=== PATIENT | female | born 1985 | race Caucasian/White ===

== ENCOUNTER 2016-06-25 07:09 | Emergency (ER) | payer OTHER ==
--- NOTE | 2016-06-25 07:15 | EDPHY ---
H & P Stated Complaint: DX W/ PNA FEELS SOB TODAY Time Seen by Provider: 06/25/16 07:14 HPI/ROS: CHIEF COMPLAINT: Worsening dyspnea HISTORY OF PRESENT ILLNESS: The patient presents to the ED with worsening dyspnea. The patient was diagnosed with pneumonia yesterday. She reportedly had an x-ray done at urgent care. She was started on antibiotics. She has been using an inhaler at home without improvement of her symptoms. She presents to the ED today complaining centralized chest pain which is pleuritic in nature as well as ongoing dyspnea. Patient has had some symptoms consistent with a URI over the past week with congestion, harsh cough and myalgias. The patient denies asymmetric calf pain or swelling. The patient does not smoke. She has no history of PE or DVT. The patient does use Depo-Provera for control. REVIEW OF SYSTEMS: A comprehensive 10 point review of systems is otherwise negative aside from elements mentioned in the history of present illness. Source: Patient Exam Limitations: No limitations - Personal History LMP (Females 10-55): IUD In Place Current Tetanus/Diphtheria Vaccine: Yes Current Tetanus Diphtheria and Acellular Pertussis (TDAP): Yes Tetanus Vaccine Date: 2007 - Medical/Surgical History Hx Asthma: No Hx Chronic Respiratory Disease: No Hx Diabetes: No Hx Cardiac Disease: No Hx Renal Disease: No Hx Cirrhosis: No Hx Alcoholism: No Hx HIV/AIDS: No Hx Splenectomy or Spleen Trauma: No Other PMH: PMH- epilepsy. PSH- ANGELA - Social History Smoking Status: Never smoked Alcohol Use: None Drug Use: None - Physical Exam Exam: General Appearance: Alert, no distress Eyes: Pupils equal and round no pallor or injection ENT, Mouth: Mucous membranes moist Respiratory: There are no retractions, lungs are clear to auscultation Cardiovascular: Tachycardic Gastrointestinal: Abdomen is soft and nontender, no masses, bowel sounds normal Neurological: A&O, normal motor function, normal sensory exam, normal cranial nerves Skin: Warm and dry, no rashes Musculoskeletal: Neck is supple nontender Extremities: symmetrical, full range of motion Constitutional: Initial Vital Signs Temperature (C) 37.6 C 06/25/16 07:10 Heart Rate 119 H 06/25/16 07:10 Respiratory Rate 20 06/25/16 07:10 Blood Pressure 146/119 H 06/25/16 07:10 O2 Sat (%) 96 01/24/17 07:10 Allergies/Adverse Reactions: amoxicillin [Amoxicillin] Allergy (Verified 04/08/14 17:30) Home Medications: Medication Instructions Recorded ALBUTEROL SULFATE 06/25/16 Albuterol [Ventolin Hfa Inhaler] 2 puffs IH QID PRN #1 mdi 06/25/16 Hydrocodone/APAP 5/325 [Ethridge 1 - 2 each PO Q6 PRN #20 tab 06/25/16 5/325] Mucinex Dm ER 1,200-60 mg Tab 06/25/16 Oseltamivir Phosphate [Tamiflu] 75 mg PO BID #10 cap 06/25/16 Z-PACK 06/25/16 Medical Decision Making - Diagnostics Imaging: EKG: Complete interpretation has been separately recorded in the [facility] archive. Summary impression: Sinus rhythm, rate 96 ED Course/Re-evaluation: The patient presents to the ED with upper respiratory symptoms and worsening dyspnea. The patient does have a slightly elevated D-dimer. Her influenza PCR is positive. I favor a diagnosis of acute influenza over pulmonary embolism at this point time. The patient will be started on Tamiflu. She is not hypoxic. She had slight tachycardia which improved with IV fluids. The patient was re-evaluated at 9:30 a.m.. She is comfortable being discharged home. She is given a prescription for Ethridge. She is advised to continue ibuprofen. She should return to the ED for markedly worsening symptoms or other concerns. Differential Diagnosis: Differential diagnosis considered includes asthma, bronchitis, pneumonia, influenza - Data Points Laboratory Results: Laboratory Results 06/25/16 08:35 06/25/16 08:35 06/25/16 06/25/16 08:35 07:30 WBC 6.68 10^3/uL (3.80-9.50) RBC 4.54 10^6/uL (4.18-5.33) Hgb 13.8 g/dL (12.6-16.3) Hct 39.4 % (38.0-47.0) MCV 86.8 fL (81.5-99.8) MCH 30.4 pg (27.9-34.1) MCHC 35.0 g/dL (32.4-36.7) RDW 12.5 % (11.5-15.2) Plt Count 263 10^3/uL (150-400) MPV 9.3 fL (8.7-11.7) Neut % (Auto) 80.5 H % (39.3-74.2) Lymph % (Auto) 10.9 L % (15.0-45.0) [place] % (Auto) 7.9 % (4.5-13.0) Eos % (Auto) 0.0 L % (0.6-7.6) Baso % (Auto) 0.4 % (0.3-1.7) Nucleat RBC Rel Count 0.0 % (0.0-0.2) Absolute Neuts (auto) 5.37 10^3/uL (1.70-6.50) Absolute Lymphs (auto) 0.73 L 10^3/uL (1.00-3.00) Absolute Monos (auto) 0.53 10^3/uL (0.30-0.80) Absolute Eos (auto) 0.00 L 10^3/uL (0.03-0.40) Absolute Basos (auto) 0.03 10^3/uL (0.02-0.10) Absolute Nucleated RBC 0.00 10^3/uL (0-0.01) Immature Gran % 0.3 % (0.0-1.1) Immature Gran # 0.02 10^3/uL (0.00-0.10) D-Dimer 0.90 H ug/mLFEU (0.00-0.50) Sodium 143 mEq/L (134-144) Potassium 3.7 mEq/L (3.5-5.2) Chloride 112 H mEq/L (97-110) Carbon Dioxide 19 L mEq/l (22-31) Anion Gap 12 mEq/L (8-16) BUN 8 mg/dL (7-23) Creatinine 0.5 L mg/dL (0.6-1.0) Estimated GFR > 60 Glucose 94 mg/dL (70-100) Calcium 8.7 mg/dL (8.5-10.4) Beta HCG, Qual NEGATIVE Influenza A & B (PCR) POSITIVE FOR FLU A H (NEGATIVE) Medications Given: Discontinued Medications Albuterol (Proventil Neb) 3 ml IH EDNOW ONE Stop: 06/25/16 08:48 Last Admin: 06/25/16 09:08 Dose: 3 ml Albuterol/Ipratropium (Duoneb) 3 ml IH EDNOW ONE Stop: 06/25/16 07:26 Last Admin: 06/25/16 08:15 Dose: Not Given Sodium Chloride (Ns) 1,000 mls @ 0 mls/hr IV ONCE ONE PRN Reason: Wide Open Stop: 06/25/16 07:26 Last Admin: 06/25/16 07:45 Dose: 1,000 mls Departure - Departure Disposition: Home, Routine, Self-Care Clinical Impression: Influenzal bronchitis Condition: Good Instructions: Influenza (ED) Additional Instructions: 1. Take Ibuprofen or Motrin 600 mg by mouth three times a day. 2. Take Tamiflu as needed for influenza. 3. Ethridge as needed for pain Referrals: Alberto Yates MD [Primary Care Provider] - As per Instructions Prescriptions: Hydrocodone/APAP 5/325 [Ethridge 5/325] 1 - 2 each PO Q6 PRN #20 tab PRN Reason: for pain Oseltamivir Phosphate [Tamiflu] 75 mg PO BID #10 cap Albuterol [Ventolin Hfa Inhaler] 2 puffs IH QID PRN #1 mdi PRN Reason: for shortness of breath
[2016-06-25] MEDS ORDERED: IPRATROPIUM/ALBUTEROL 3 ML DEYVIAL IH ONE (07:25)
[2016-06-25] MEDS ORDERED: NS 1,000 ML IV ONE (07:25)
--- NOTE | 2016-06-25 08:41 | DX ---
Chest, PA and Lateral History: Dyspnea, diagnosed with pneumonia yesterday COMPARISON: None Findings: Lungs are clear, without infiltrate or consolidation. Heart size is normal. There is mild e levation of the right hemidiaphragm. There is no adenopathy or mass lesion. There is no pleural effus ion or pneumothorax. Bones are unremarkable for age. There are prominent gas-filled loops of bowel in the upper abdomen. Right upper quadrant surgical clips are consistent with previous cholecystectomy. No free air is seen beneath either hemidiaphragm. There are minor T6 and T7 compressions, likely old . Impression: 1. Normal chest without radiographic evidence for pneumonia 2. Prominent gas-filled loops of bowel in the upper abdomen. If there is concern for an abdominal pat hology, then consider 2 views of the abdomen. Results called to Dr. Marcus at 8:36 AM.
--- NOTE | 2016-06-25 08:46 | CPEKG ---
Heart Rate: 96 RR Interval: 625 P-R Interval: 164 QRSD Interval: 88 QT Interval: 344 QTC Interval: 435 P [place]: 48 QRS [place]: -12 T Wave [place]: -19 EKG Severity - BORDERLINE ECG - EKG Impression: SINUS RHYTHM Electronically Signed By: Mathew Marcus 25-Jun-2016 09:11:15
[2016-06-25 08:47] LABS: % IMMATURE GRANULYOCYTES 0.3 % (0.0-1.1); ABSOLUTE IMMATURE GRANULOCYTES 0.02 10^3/uL (0.00-0.10); ADD DIFF? NO; ADD MORPH? NO; ADD SCAN? NO; ATYPICAL LYMPHOCYTE FLAG 10 (0-99); FRAGMENT RBC FLAG 0 (0-99); HEMATOCRIT 39.4 % (38.0-47.0); HEMOGLOBIN 13.8 g/dL (12.6-16.3); LEFT SHIFT FLG 0 (0-99); LIPEMIA HEMOLYSIS FLAG 90 (0-99); MEAN CELL HEMOGLOBIN 30.4 pg (27.9-34.1); MEAN CELL VOLUME 86.8 fL (81.5-99.8); MEAN PLATELET VOLUME 9.3 fL (8.7-11.7); PLATELET CLUMPS FLAG 0 (0-99); PLATELET COUNT 263 10^3/uL (150-400); RED BLOOD CELL COUNT 4.54 10^6/uL (4.18-5.33); RED CELL DISTRIBUTION WIDTH 12.5 % (11.5-15.2)
[2016-06-25] MEDS ORDERED: ALBUTEROL 3 ML DEYVIAL IH ONE (08:47)
[2016-06-25 09:11] LABS: ANION GAP 12 mEq/L (8-16); CALCIUM 8.7 mg/dL (8.5-10.4); CARBON DIOXIDE 19 mEq/l (22-31); CHLORIDE 112 mEq/L (97-110); CREATININE 0.5 mg/dL (0.6-1.0); GLOMERULAR FILTRATION RATE > 60; GLUCOSE 94 mg/dL (70-100); POTASSIUM 3.7 mEq/L (3.5-5.2); SODIUM 143 mEq/L (134-144)
[2016-06-25 09:45] VITALS: BP 114/92; PULSE 98; RESP 18; TEMP 97.9; O2SAT 97
== END 2016-06-25 09:41 | disposition home or self-care (01) ==
DX: J11.1 Influenza due to unidentified influenza virus with other respiratory manifestations (principal)